=== PATIENT | female | born 1960 | race Caucasian/White ===

== ENCOUNTER → 2016-10-08 | Outpatient (CLI) | payer OTHER ==
--- NOTE | 2016-10-08 22:01 | WWHP ---
DATE OF DICTATION: 10/08/2016 CHIEF COMPLAINT: The patient is here for her routine gynecologic exam and mammogram. HISTORY OF PRESENT ILLNESS: This is a 56-year-old G3, P2-0-1-2 with an LMP of 2006. She is status post endometrial ablation in approximately 2006, and she has been amenorrheic since then. She developed hot flashes about 4 years ago and these have improved, but she still has some hot flashes. She has a genital wart that she has had for several years. She believes she got this from her ex-. She had genital warts removed by Dr. Bradford about 5 years ago, but they have recurred. She is otherwise without gynecologic complaints and denies any postmenopausal bleeding. PAST MEDICAL HISTORY: 1. Diabetes requiring insulin; this has been since age 25. 2. Chronic leg and back problems. 3. Depression. 4. Anxiety. MEDICATIONS: 1. Chantix 1 b.i.d., which she has used since approximately 08/25. 2. NovoLog insulin 20 units in the morning and 20 units in the evening. 3. Xanax 0.5 mg 1 daily p.r.n. 4. Lyrica 1 t.i.d. 5. Naproxen 500 mg b.i.d. p.r.n. 6. Zoloft 100 mg 1 daily. ALLERGIES: NO KNOWN DRUG ALLERGIES. PAST SURGICAL HISTORY: 1. Endometrial ablation in 2006. 2. Laparoscopic tubal ligation. 3. Cholecystectomy. 4. Abdominal wall hernia in the past. 5. She had a colonoscopy in approximately 2013. PAST OB HISTORY: Two vaginal deliveries. The second one was complicated with gestational diabetes. Also one spontaneous . PAST [employer] HISTORY: She has had problems with genital warts since approximately 2011. She has no other history of STDs. SOCIAL HISTORY: She smokes about 2 cigarettes per day and is trying to quit. She denies alcohol use. She does occasionally use marijuana and denies any other drug use. She is and is not seeing anybody at this time. For several years after the divorce she was intermittently seeing her ex-, but she stopped seeing him after she believes he gave her genital warts. She does not work outside the home but does care for her mother, who has dementia. She lives with her parents. FAMILY HISTORY: Father and sisters have diabetes. Father also had coronary artery disease. Mother has dementia. Sister has breast cancer and a cousin had breast cancer. REVIEW OF SYSTEMS: She believes she has gained about 14 pounds over the last year. She denies respiratory, cardiac or GI problems. PHYSICAL EXAM: Blood pressure 129/77. Height 5 feet 4 inches. Weight 174 pounds. Temperature 96.3, pulse 72. This is a well-developed, well-nourished white female who is alert and oriented x3, in no acute distress. HEENT is within normal limits. NECK: Supple without mass or thyromegaly. CHEST AND LUNGS: Clear to auscultation. HEART: Regular rate and rhythm. Breasts are without mass or discharge. Axillary exam is negative for adenopathy. BACK: Negative for CVA tenderness. ABDOMEN: Soft, nontender, without palpable masses. PELVIC EXAM: External genitalia reveal some genital condylomata in the area bordering the perineum and left labia majora. The area of condylomata measures approximately 1.5 x 0.8 cm. This appears benign and has the typical appearance of condyloma. These are raised and seem to be located in the same area. No other condyloma is noted. The rest of the external genitalia is unremarkable but does reveal mild atrophy. Cervix and vagina reveal mild atrophy without lesions. There is no evidence of prolapse. The uterus is midposition, nongravid size and nontender. There are no palpable adnexal masses or tenderness. Rectovaginal exam is negative for mass or tenderness and is negative for occult blood. EXTREMITIES: Nontender. IMPRESSION: A 56-year-old menopausal female who is status post tubal ligation with condylomata isolated to the area between the left labia majora and perineum, and otherwise unremarkable gynecologic exam. PLAN: 1. Pap smear was performed. 2. Self breast examination was discussed. 3. Mammogram will be done today. 4. I have recommend that she quit smoking, and she is in the process of doing this. 5. We discussed options for the condylomata, including Aldara, ( ) treatment and possible excision. She is interested in having the condylomata excised. This was previously done about 5 years ago. She understands that these were probably passed sexually, and STD prevention was discussed. 6. The patient will be referred for possible excision of her condylomata. 7. She will return in one year.
--- NOTE | 2016-10-09 13:46 | MM ---
Reason for exam: screening (asymptomatic). Last mammogram was performed 2 years and 7 months ago. History: Patient is postmenopausal and history of other cancer. Family history of premenopausal breast cancer in grandmother at age 30 and premenopausal breast cancer in sister at age 40. Cancelled Right Mammotome of the right breast, August 22, 2005. Physical Findings: A clinical breast exam by your physician is recommended on an annual basis and results should be correlated with mammographic findings. MG Screening Mammo w CAD Bilateral CC and MLO view(s) were taken. Prior study comparison: March 23, 2014, bilateral MG screening mammo w CAD. July 11, 2013, left diagnostic mammogram w/CAD. December 28, 2012, bilateral digital screening mammo w/CAD. The breast tissue is heterogeneously dense. This may lower the sensitivity of mammography. Focal asymmetry outer left CC view is stable No significant changes when compared with prior studies. ASSESSMENT: Benign, BI-RAD 2 RECOMMENDATION: Routine screening mammogram of both breasts in 1 year.
== END | disposition home or self-care (01) ==
LOC: WWCWWP 10:40
PROVIDERS: ATTEND Obstetrics & Gynecology
DX: Z12.31 Encounter for screening mammogram for malignant neoplasm of breast (principal)

== ENCOUNTER → 2019-02-02 | Outpatient (CLI) | payer OTHER ==
--- NOTE | 2019-02-02 12:09 | XR ---
EXAMINATION TYPE: XR chest 2V DATE OF EXAM: 02/02/2019 COMPARISON: NONE HISTORY: COPD with current tobacco use. TECHNIQUE: Frontal and lateral views of the chest are obtained. FINDINGS: There is chronic parenchymal changes without suspicious focal air space opacity, pleural e ffusion, or pneumothorax seen. The cardiac silhouette size is within normal limits. The osseous st ructures are intact. Cholecystectomy clips are noted. IMPRESSION: Chronic parenchymal changes without acute pulmonary process. Patient may be candidate fo r low dose lung screening CT. Correlate clinically.
== END | disposition home or self-care (01) ==
LOC: RADXRMAIN 11:46
PROVIDERS: ATTEND Family Medicine
DX: J44.9 Chronic obstructive pulmonary disease, unspecified (principal); F17.200 Nicotine dependence, unspecified, uncomplicated
CPT/HCPCS: 71046

== ENCOUNTER 2019-03-06 01:59 | Inpatient (IN) | payer OTHER ==
[2019-03-06] MEDS ORDERED: HEPARIN SODIUM,PORCINE 5,000 UNIT/ML 1 ML VIAL IV ONE (04:26)
[2019-03-06] MEDS ORDERED: HEPARIN SODIUM,PORCINE 5,000 UNIT/ML 1 ML VIAL IV PRN (04:26)
[2019-03-06] MEDS ORDERED: IPRATROPIUM-ALBUTEROL 3 ML NEB INHALATION PRN (04:38)
[2019-03-06] MEDS ORDERED: Potassium Replacement Protocol 1 EACH MISC MISCELLANE PRN (04:38)
[2019-03-06] MEDS: HEPARIN SOD,PORK IN 0.45% NACL 25,000 UNIT in 0.45% NACL 1 250ML.BAG IV SCH (05:15)
[2019-03-06 06:01] LABS: INR 0.9 (<1.2); Partial Thromboplastin Time 30.7 sec (22.0-30.0); Prothrombin Time 9.6 sec (9.0-12.0)
[2019-03-06 06:14] LABS: Anisocytosis Slight; Basophils # (A) 0.1 k/uL (0-0.2); Basophils % (A) 1 %; Eosinophils # (A) 0.3 k/uL (0-0.7); Eosinophils % (A) 4 %; HCT 36.4 % (34.0-46.0); HGB 11.5 gm/dL (11.4-16.0); Hypochromasia Moderate; Lymphocytes # (A) 1.8 k/uL (1.0-4.8); Lymphocytes % (A) 20 %; MCH 27.3 pg (25.0-35.0); MCHC 31.7 g/dL (31.0-37.0); Mean Platelet Volume 6.1; Monocytes # (A) 0.5 k/uL (0-1.0); Monocytes % (A) 5 %; Neutrophils # (A) 6.1 k/uL (1.3-7.7); Neutrophils % (A) 69 %; Platelet Count 322 k/uL (150-450); RBC 4.23 m/uL (3.80-5.40); RDW 17.2 % (11.5-15.5); WBC 8.8 k/uL (3.8-10.6)
[2019-03-06 06:33] LABS: African American GFR (CKD) >90 (>60 ml/min/1.73 sqM); Anion Gap 5 mmol/L; Blood Urea Nitrogen 17 mg/dL (7-17); Calcium 8.8 mg/dL (8.4-10.2); Carbon Dioxide 30 mmol/L (22-30); Chloride 107 mmol/L (98-107); Glucose 169 mg/dL (74-99); Potassium 4.1 mmol/L (3.5-5.1); Sodium 142 mmol/L (137-145)
[2019-03-06] MEDS: PANTOPRAZOLE 40 MG TABLET PO SCH (06:48)
[2019-03-06] MEDS ORDERED: VERAPAMIL 2.5 MG/ML 2 ML AMP ONE (07:25)
[2019-03-06] MEDS ORDERED: LIDOCAINE 1% INJ 10MG/ML (20 ML MDV) ONE (07:25)
[2019-03-06] MEDS ORDERED: fentaNYL (PF) 50 MCG/ML 2 ML AMP ONE (07:39)
[2019-03-06] MEDS ORDERED: MIDAZOLAM 2 MG/2 ML VIAL IVP ONE (07:42)
[2019-03-06] MEDS ORDERED: SODIUM CHLORIDE 0.9% 1,000 ML IV ONE (07:42)
[2019-03-06] MEDS ORDERED: fentaNYL (PF) 50 MCG/ML 2 ML AMP IV ONE (07:42)
[2019-03-06] MEDS: LIDOCAINE 1% INJ 10MG/ML (20 ML MDV) SQ ONE ×2 (07:48→07:59)
[2019-03-06] MEDS ORDERED: HEPARIN SODIUM 1,000 UN/ML (10ML VL) ONE (07:51)
[2019-03-06] MEDS ORDERED: BIVALIRUDIN BOLUS 250 MG/50 ML IV ONE (08:13)
[2019-03-06] MEDS ORDERED: BIVALIRUDIN 250 MG in SODIUM CHLORIDE 0.9% 50 ML IV ONE (08:13)
[2019-03-06] MEDS ORDERED: CLOPIDOGREL 75 MG TAB ONE (08:14)
[2019-03-06] MEDS ORDERED: CLOPIDOGREL 75 MG TAB PO ONE (08:15)
[2019-03-06] MEDS: NITROGLYCERIN 1000MCG/10ML SYRINGE INTRACORON ONE ×2 (08:18→08:23)
--- NOTE | 2019-03-06 08:21 | P.CRDCN ---
History of Present Illness Consult date: 03/06/19 History of present illness: This is a 58-year-old female with history of previous smoking and also diabetes who presented to [facility] with chest pain and shortness of breath, yesterday evening. Her EKGs did not reveal any acute changes. Her symptoms are controlled with medical therapy. However her troponin values went up suggestive of non-Q RI. Patient was transferred to [facility] for further evaluation. Patient is advised to have a cardiac catheterization for definitive diagnosis. Patient was explained the risks and benefits of the p rocedure Review of Systems REVIEW OF SYSTEMS: CONSTITUTIONAL:. Patient is doing well. No complaints of fever or chills EYES: Denies diplopia, blurring of vision EARS, NOSE, MOUTH, THROAT: Denies headaches, denies sore throat. CARDIOVASCULAR: As per HPI RESPIRATORY: As per HPI GASTROINTESTINAL: Denies change in appetite, denies abdominal pain, denies diarrhea GENITOURINARY: Denies hematuria, denies infections. MUSKULOSKELETAL: Denies pain, denies swelling. Denies any cramps or claudication INTEGUMENTARY: Denies rash, denies eczema. NEUROLOGICAL: Denies focal weakness, or visual disturbance. Denies any dizziness or syncope PSYCHIATRIC: Denies anxiety, denies depression. HEMATOLOGIC/LYMPHATIC: Denies any bleeding, denies enlarged lymph nodes. Past Medical History Past Medical History: Diabetes Mellitus History of Any Multi-Drug Resistant Organisms: None Reported Past Surgical History: Cholecystectomy, Tubal Ligation Past Anesthesia/Blood Transfusion Reactions: No Reported Reaction Past Psychological History: Anxiety, Depression Smoking Status: Former smoker Past Alcohol Use History: None Reported Past Drug Use History: Marijuana Additional Drug Use History / Comment(s): pt reports daily marijuana use. - Past Family History Mother Family Medical History: Cancer, Hypertension Additional Family Medical History / Comment(s): ovarian cancer Father Family Medical History: Coronary Artery Disease (CAD), Diabetes Mellitus, Hypertension Medications and Allergies Home Medications Medication Instructions Recorded Confirmed Type ALPRAZolam [Xanax] 0.5 tab PO DAILY 03/06/19 03/06/19 History Insuln Asp Prt/Insulin Aspart 25 units SQ BID 03/06/19 03/06/19 History [NovoLOG MIX 70-30 VIAL] Naproxen 500 mg PO BID PRN 03/06/19 03/06/19 History Omeprazole 20 mg PO DAILY 03/06/19 03/06/19 History Pregabalin 75 mg PO TID 03/06/19 03/06/19 History Sertraline [Zoloft] 100 mg PO DAILY 03/06/19 03/06/19 History Allergies Allergy/AdvReac Type Severity Reaction Status Date / Time No Known Allergies Allergy Verified 03/06/19 04:12 Physical Exam Vitals: Vital Signs Temp Pulse Resp BP Pulse Ox 03/06/19 04:00 97.9 F 61 18 133/71 95 Intake and Output 03/05/19 03/06/19 03/06/19 22:59 06:59 14:59 Output Total 400 Balance -400 Output: Urine 400 Other: Voiding Method Toilet # Voids 2 Weight 77 kg GENERAL EXAM: Patient is alert and oriented and doesn't appear to be in any acute distress HEENT: Normocephalic. Normal reaction of pupils, equal size, normal range of extraocular motion. No erythema or exudates in the throat. NECK: No masses, no nuchal rigidity. CHEST: No chest wall deformity. LUNGS: Equal air entry with no crackles or wheeze. HEART: S1 and S2 normal with no audible mumurs or gallops. Regular rhythm, femorals equal on both sides.. ABDOMEN: No hepatosplenomegaly, normal bowel sounds, no guarding or rigidity. SKIN: No rashes CENTRAL NERVOUS SYSTEM: No focal deficits. EXTREMITIES: No cyanosis, clubbing or edema. Results 03/06/19 05:13 03/06/19 05:13 Coagulation 03/06/19 Range/Units 05:13 PT 9.6 (9.0-12.0) sec APTT 30.7 H (22.0-30.0) sec CBC 03/06/19 Range/Units 05:13 WBC 8.8 (3.8-10.6) k/uL RBC 4.23 (3.80-5.40) m/uL Hgb 11.5 (11.4-16.0) gm/dL Hct 36.4 (34.0-46.0) % Plt Count 322 (150-450) k/uL Comprehensive Metabolic Panel 03/06/19 Range/Units 05:13 Sodium 142 (137-145) mmol/L Potassium 4.1 (3.5-5.1) mmol/L Chloride 107 (98-107) mmol/L Carbon Dioxide 30 (22-30) mmol/L BUN 17 (7-17) mg/dL Creatinine 0.63 (0.52-1.04) mg/dL Glucose 169 H (74-99) mg/dL Calcium 8.8 (8.4-10.2) mg/dL Current Medications Generic Name Dose Route Start Last Admin Trade Name Freq PRN Reason Stop Dose Admin Albuterol/Ipratropium 3 ml 03/06/19 04:38 Duoneb 0.5 Mg-3 Mg/3 Ml Soln INHALATION RT-Q4H PRN Shortness Of Breath Alprazolam 0.5 mg 03/06/19 09:00 Xanax PO DAILY SEEMA Heparin Sodium (Porcine) 0 unit 03/06/19 04:26 Heparin IV PER PROTOCOL PRN Low PTT Protocol Heparin Sodium/Sodium Chloride 250 mls @ 9.24 mls/hr 03/06/19 04:30 03/06/19 05:15 25,000 unit/ Sodium Chloride IV 12 units/kg/hr .Q24H SEEMA 9.24 mls/hr Administration Protocol 12 UNITS/KG/HR Ceftriaxone Sodium 1 gm/ 50 mls @ 100 mls/hr 03/06/19 09:00 Sodium Chloride IVPB Q24HR [facility] Insulin Aspart 25 unit 03/06/19 07:30 Novolog Mix 70-30 Vial SQ AC-BID SEEMA Miscellaneous Information 1 each 03/06/19 04:38 Potassium Per Protocol MISCELLANE DAILY PRN Per Protocol Protocol Naproxen 500 mg 03/06/19 09:00 Naprosyn PO BID PRN Pain Pantoprazole Sodium 40 mg 03/06/19 07:30 03/06/19 06:48 Protonix PO 40 mg AC-BRKFST SEEMA Administration Pregabalin 75 mg 03/06/19 09:00 Lyrica PO TID SEEMA Sertraline HCl 100 mg 03/06/19 09:00 Zoloft PO DAILY SEEMA Intake and Output 03/05/19 03/06/19 03/06/19 22:59 06:59 14:59 Output Total 400 Balance -400 Output: Urine 400 Other: Voiding Method Toilet # Voids 2 Weight 77 kg 03/06/19 05:13 03/06/19 05:13 EKG Interpretations (text) Sinus rhythm without any acute ST-T changes Assessment and Plan (1) Non-ST elevation RI (NSTEMI) Current Visit: Yes Status: Acute Code(s): I21.4 - NON-ST ELEVATION (NSTEMI) MYOCARDIAL INFARCTION SNOMED Code(s): 62079079 (2) Diabetes mellitus Current Visit: Yes Status: Acute Code(s): E11.9 - TYPE 2 DIABETES MELLITUS WITHOUT COMPLICATIONS SNOMED Code(s): 84534357 (3) History of smoking Current Visit: Yes Status: Acute Code(s): Z87.891 - PERSONAL HISTORY OF NICOTINE DEPENDENCE SNOMED Code(s): 476635630 (4) History of marijuana use Current Visit: Yes Status: Acute Code(s): Z87.898 - PERSONAL HISTORY OF OTHER SPECIFIED CONDITIONS SNOMED Code(s): 977149752 Plan: We will proceed with cardiac catheterization for definitive diagnosis. We'll also get an echocardiogram. We'll treat her with beta blockers. Nitrates lipid-lowering agents and aspirin.
[2019-03-06] MEDS ORDERED: IOPAMIDOL-370 125ML BTL INJ ONE (08:27)
--- NOTE | 2019-03-06 08:27 | P.CARDCATH ---
Date of Procedure: 03/06/19 Preoperative Diagnosis: Non-STEMI Postoperative Diagnosis: Critical lesion involving the mid circumflex Procedure(s) Performed: Left heart catheterization without left ventriculography Description of Procedure: HISTORY: [] CONSENT:I have discussed the risks, benefits and alternative therapies for the above-mentioned procedure and for both sedation/analgesia as well as necessary blood product administration, if indicated, as they pertain to this patient. The patient has indicated understanding and acceptance of the risks and procedures discussed. PROCEDURE: Patient was brought to the lab in a fasting state. Patient was given some IV sedation. At times were made to enter the right radial artery after infiltrating the right testicle lidocaine. The floor was obtained while could not be advanced. The procedure was subsequently done from the right groin approach. The right groin is infiltrated with lidocaine and right femoral artery was entered using Seldinger technique. A 6-Ivorian catheter was left in place and selective coronary arteriography was performed. Patient tolerated the procedure well. No immediate complications were noted . Patient went on to have stent placement of circumflex by Dr. Marshall Conscious Sedation: Versed 1mg Fentanyl 25 g Duration 26minutes HEMODYNAMICS: Aortic pressure is 148/81. Left ventricle end-diastolic pressure is about 20. There was no gradient across the aortic valve SELECTIVE CORONARY ARTERIOGRAPHY: LEFT MAIN: Normal length and patent THE LEFT ANTERIOR DESCENDING CORONARY ARTERY:. This is a good caliber vessel which becomes small in caliber in the distal distribution. It was sized to good-sized diagonal branch. The LAD and branches are free of any significant focal lesions. THE LEFT CIRCUMFLEX AND IS CORONARY ARTERY: This is a moderate caliber vessel giving rise to good-sized OM branch and distal PLV branch. There is about 9 the 5-90% stenosis involving the circumflex prior to the origin of the OM branch THE RIGHT CORONARY ARTERY:. This is a moderate caliber vessel and dominant in distribution. There is diffuse disease involving the proximal and mid RCA with areas of about 40-50% stenosis LEFT VENTRICULOGRAPHY: Not performed FINAL IMPRESSION:. Critical lesion involving the circumflex. Mild to moderate diffuse disease involving the RCA. The LAD is free of any Sigmund focal lesions PLAN: Stent placement of the RCA being done by Dr. Marshall PROGNOSIS: Fair
[2019-03-06] MEDS ORDERED: RX INFO: IV CONTRAST WAS GIVEN 1 EACH MISC MISCELLANE PRN (08:48)
[2019-03-06] MEDS ORDERED: NITROGLYCERIN SL TABS 0.4 MG TAB SUBLINGUAL PRN (08:48)
[2019-03-06] MEDS ORDERED: ATROPINE SULFATE 0.1 MG/ML 10ML SYRINGE IV PRN (08:48)
[2019-03-06] MEDS ORDERED: ZOLPIDEM 5 MG TAB PO PRN (08:48)
[2019-03-06] MEDS ORDERED: MAG HYDROX/AL HYDROX/SIMETH 30 ML CUP PO PRN (08:48)
--- NOTE | 2019-03-06 08:56 | P.PCN ---
Date of Procedure: 03/06/19 Operative Findings: Percutaneous coronary intervention Performing physician: Jair Garcia M.D. Procedure performed: Successful stenting of the proximal left circumflex coronary artery using 3.0 x 12 mm Xience SANGEETHA which was post dilated using 3.25 mm noncompliant balloon with an excellent angiographic results and reduction of stenosis from 99% to 0%. Indication: This is a pleasant 58-year-old female patient with a past medical history significant for diabetes as well as history of smoking marijuana who presented initially to [facility] with chest discomfort and ruled in for acute non-ST deviation myocardial infarction. The patient was seen by Dr. Youssef who recommended proceeding with a heart catheterization which revealed critical disease involving the proximal left circumflex. Balloon angioplasty and stenting was advised. Approach: Right common femoral artery. Complication: None Level of sedation: Moderate with a sedation length of 23 minutes Procedure description: Please refer to diagnosed 6 heart catheterization was performed by Dr. Youssef earlier today. Anticoagulation was initiated using Angiomax. I did engage the left main using JL 3.5 guide. I wire the left circumflex using a whisper J-wire and the wire was advanced into the first obtuse marginal branch of the left circumflex. After that I did balloon angioplasty of the left circumflex using 2.5 x 12 mm balloon which was inflated under 14 unique for 20 seconds. After that I did advance 3.0 x 15 mm Xience SANGEETHA where the stent was positioned under fluoroscopy guidance and deployed under 18 unique for 20 seconds. I post dilated the stent using 3.25 mm noncompliant balloon which was inflated under 20 unique for 20 seconds. The following angiogram showed an excellent angiographic results with reduction of stenosis from 99% to 0%. The procedure was completed without any complication. Postprocedure management: Dual antiplatelet therapy Risk factors modification Standard groin care Follow-up with the patient
[2019-03-06] MEDS ORDERED: SODIUM CHLORIDE 0.9% 1,000 ML IV SCH (09:00)
[2019-03-06] MEDS ORDERED: NAPROXEN 250 MG TAB PO PRN (09:00)
--- NOTE | 2019-03-06 10:10 | P.HPIM ---
History of Present Illness H&P Date: 03/06/19 Chief Complaint: Chest pain This is a 58-year-old female with the remote history of a small smoking, patient uses medical marijuana, she has significant history of GERD diabetes and major depression she presented in emergency department after shortness of breath and chest tightness thought to be related to different detergent exposure but tightness was consistent without any significant response to breathing treatment she was noted to have some EKG changes ST segment elevation thought to have significant coronary artery disease and unstable angina and transferred to [facility], cardiac cath and angiogram performed a significant lesion in circumflex prior to region of up to his marginal and about 40-50% stenosis of RCA patient underwent stent placement in circumflex tolerated very well evaluated in the living room she is laying flat breathing comfortably denies any chest pain Review of Systems All systems: negative Past Medical History Past Medical History: Diabetes Mellitus History of Any Multi-Drug Resistant Organisms: None Reported Past Surgical History: Cholecystectomy, Tubal Ligation Past Anesthesia/Blood Transfusion Reactions: No Reported Reaction Past Psychological History: Anxiety, Depression Smoking Status: Former smoker Past Alcohol Use History: None Reported Past Drug Use History: Marijuana Additional Drug Use History / Comment(s): pt reports daily marijuana use. - Past Family History Mother Family Medical History: Cancer, Hypertension Additional Family Medical History / Comment(s): ovarian cancer Father Family Medical History: Coronary Artery Disease (CAD), Diabetes Mellitus, Hypertension Medications and Allergies Home Medications Medication Instructions Recorded Confirmed Type ALPRAZolam [Xanax] 0.5 mg PO DAILY 03/06/19 03/06/19 History Dextroamphetamine/Amphetamine 30 mg PO BID 03/06/19 03/06/19 History [Adderall] Hydrochlorothiazide [Hydrodiuril] 25 mg PO DAILY 03/06/19 03/06/19 History Insuln Asp Prt/Insulin Aspart 25 units SQ BID 03/06/19 03/06/19 History [NovoLOG MIX 70-30 VIAL] Naproxen 500 mg PO BID PRN 03/06/19 03/06/19 History Omeprazole 20 mg PO DAILY 03/06/19 03/06/19 History Pregabalin 75 mg PO TID 03/06/19 03/06/19 History Sertraline [Zoloft] 100 mg PO DAILY 03/06/19 03/06/19 History Allergies Allergy/AdvReac Type Severity Reaction Status Date / Time No Known Allergies Allergy Verified 03/06/19 08:58 Physical Exam Vitals: Vital Signs Temp Pulse Resp BP Pulse Ox 03/06/19 09:33 63 18 127/73 94 L 03/06/19 09:18 62 16 131/78 96 03/06/19 09:03 63 18 143/72 95 03/06/19 08:48 98.6 F 14 146/73 95 03/06/19 04:00 97.9 F 61 18 133/71 95 Intake and Output 03/05/19 03/06/19 03/06/19 22:59 06:59 14:59 Intake Total 50 Output Total 400 Balance -400 50 Intake: IV 50 Output: Urine 400 Other: Voiding Method Toilet Bedpan # Voids 2 Weight 77 kg - Constitutional General appearance: average body habitus, cooperative, disheveled, no acute distress - EENT Eyes: EOMI, PERRLA, normal appearance ENT: normal oropharynx Ears: bilateral: normal - Neck Neck: normal ROM Carotids: bilateral: bruit absent Thyroid: bilateral: normal size - Respiratory Respiratory: bilateral: CTA - Cardiovascular Rhythm: regular Heart sounds: normal: S1, S2 - Gastrointestinal General gastrointestinal: normal bowel sounds, soft - Neurologic Neurologic: CNII-XII intact - Musculoskeletal Musculoskeletal: gait normal, generalized weakness, strength equal bilaterally - Psychiatric Psychiatric: A&O x's 3, appropriate affect, intact judgment & insight Results CBC & Chem 7: 03/06/19 05:13 03/06/19 05:13 Labs: Abnormal Lab Results - Last 24 Hours (Table) 03/06/19 03/06/19 03/06/19 Range/Units 05:13 05:13 05:13 RDW 17.2 H (11.5-15.5) % APTT 30.7 H (22.0-30.0) sec Glucose 169 H (74-99) mg/dL Thrombosis Risk Factor Assmnt - Choose All That Apply Any of the Below Risk Factors Present?: Yes Each Factor Represents 1 point: Acute [place], Age 41-60 years Other Risk Factors: No Other congenital or acquired thrombophilia - If yes, enter type in comment: No Thrombosis Risk Factor Assessment Total Risk Factor Score: 2 Thrombosis Risk Factor Assessment Level: Low Risk Assessment and Plan Assessment: Unstable angina with significant disease in circumflex is status post stent placement, moderate disease in RCA Inhalational injury to detergents Tracheobronchitis Insulin-dependent diabetes mellitus type 2 History of smoking and nicotine use Dyslipidemia Major depression Plan: Continue breathing treatment as needed Antibiotics Optimize medical management of angina and coronary artery disease Status post cardiac cath angiogram and stent and circumflex Continue insulin and sliding scale Continue home medications Other recommendations pending plan of care as per clinical response of the patient Time with Patient: Greater than 30
[2019-03-06] MEDS: INSULN ASP PRT/INSULIN ASPART 100 UNIT/ML 10 ML VIAL SQ SCH ×2 (10:32→17:15)
[2019-03-06] MEDS: LISINOPRIL 2.5 MG TAB PO SCH (10:34)
[2019-03-06] MEDS: METOPROLOL TARTRATE 25 MG TAB PO SCH ×2 (10:34→20:31)
[2019-03-06] MEDS: ASPIRIN 325 MG TAB PO SCH (10:34)
[2019-03-06] MEDS: SERTRALINE 100 MG TAB PO SCH (10:34)
[2019-03-06] MEDS: PREGABALIN 75 MG CAP PO SCH ×3 (10:34→20:31)
[2019-03-06] MEDS: ALPRAZolam 0.5 MG TAB PO SCH (10:35)
[2019-03-06 11:18] VITALS: BMI 29.1
[2019-03-06 12:13] LABS: Glucose,Whole Blood 228 mg/dL (75-99)
[2019-03-06 13:35] LABS: Glucose,Whole Blood 247 mg/dL (75-99)
[2019-03-06] MEDS: INSULIN ASPART (NovoLOG) 100 UNIT/ML VIAL SQ SCH ×3 (13:37→20:56)
[2019-03-06 16:47] LABS: Glucose,Whole Blood 135 mg/dL (75-99)
[2019-03-06] MEDS: ATORVASTATIN 80 MG TAB PO SCH (20:31)
[2019-03-06 20:47] LABS: Glucose,Whole Blood 59 mg/dL (75-99)
[2019-03-06 21:13] LABS: Glucose,Whole Blood 64 mg/dL (75-99)
[2019-03-06 21:33] LABS: Glucose,Whole Blood 76 mg/dL (75-99)
[2019-03-07 01:59] LABS: Glucose,Whole Blood 148 mg/dL (75-99)
[2019-03-07] MEDS: HEPARIN SOD,PORK IN 0.45% NACL 25,000 UNIT in 0.45% NACL 1 250ML.BAG IV SCH (03:54)
[2019-03-07] MEDS: PANTOPRAZOLE 40 MG TABLET PO SCH (06:40)
[2019-03-07 06:47] LABS: Anisocytosis Slight; Basophils % (A) 0 %; Eosinophils # (A) 0.4 k/uL (0-0.7); Eosinophils % (A) 5 %; HCT 39.8 % (34.0-46.0); HGB 12.2 gm/dL (11.4-16.0); Hypochromasia Moderate; Lymphocytes % (A) 27 %; MCH 26.4 pg (25.0-35.0); MCHC 30.6 g/dL (31.0-37.0); MCV 86.2 fL (80.0-100.0); Mean Platelet Volume 5.8; Monocytes # (A) 0.4 k/uL (0-1.0); Monocytes % (A) 5 %; Neutrophils # (A) 4.3 k/uL (1.3-7.7); Neutrophils % (A) 59 %; Platelet Count 334 k/uL (150-450); RBC 4.61 m/uL (3.80-5.40); RDW 17.2 % (11.5-15.5); WBC 7.2 k/uL (3.8-10.6)
[2019-03-07 06:54] LABS: African American GFR (CKD) >90 (>60 ml/min/1.73 sqM)
[2019-03-07 07:40] LABS: Glucose,Whole Blood 148 mg/dL (75-99)
[2019-03-07] MEDS: SERTRALINE 100 MG TAB PO SCH (08:27)
[2019-03-07] MEDS: ALPRAZolam 0.5 MG TAB PO SCH ×2 (08:27→17:52)
[2019-03-07] MEDS: METOPROLOL TARTRATE 25 MG TAB PO SCH ×2 (08:27→20:58)
[2019-03-07] MEDS: PREGABALIN 75 MG CAP PO SCH ×3 (08:27→20:58)
[2019-03-07] MEDS: LISINOPRIL 2.5 MG TAB PO SCH (08:28)
[2019-03-07] MEDS: CLOPIDOGREL 75 MG TAB PO SCH ×2 (08:29→09:35)
[2019-03-07] MEDS: ASPIRIN 325 MG TAB PO SCH (08:29)
[2019-03-07] MEDS: INSULN ASP PRT/INSULIN ASPART 100 UNIT/ML 10 ML VIAL SQ SCH ×2 (08:31→17:52)
[2019-03-07] MEDS: INSULIN ASPART (NovoLOG) 100 UNIT/ML VIAL SQ SCH ×4 (09:35→20:58)
--- NOTE | 2019-03-07 11:51 | P.PN ---
Subjective Progress Note Date: 03/07/19 This is a 58-year-old female with history of nicotine dependence, diabetes, hyperlipidemia, who presented to [facility] with a non- ST elevation myocardial infarction. She was transferred here to [facility] where the patient underwent angioplasty and stenting of the circumflex artery. She was seen and examined this morning, denied any chest pain or difficulty in breathing. Blood pressure 128/60 with a heart rate in the 60s, 94% on room air. White Blood cell count 7.2, hemoglobin 12.2, platelet count 334. An echocardiogram with Doppler study has been performed, results are yet pending. Patient is currently on an aspirin daily along with Lipitor 80 mg daily, Plavix 75 mg daily, lisinopril 2-1/2 mg daily, metoprolol 25 mg one tablet by mouth twice a day. Objective - Vital Signs Vital signs: Vital Signs Temp 98.1 F 03/07/19 08:00 Pulse 61 03/07/19 08:00 Resp 18 03/07/19 08:00 BP 127/64 03/07/19 08:00 Pulse Ox 94 L 03/07/19 08:00 Intake & Output 03/06/19 03/07/19 03/07/19 18:59 06:59 18:59 Intake Total 526 240 Balance 526 240 Weight 77 kg 72.6 kg Intake: IV 50 Oral 476 240 Other: Voiding Method Bedpan Toilet # Voids 3 1 - Exam PHYSICAL EXAMINATION: GENERAL: 58-year-old female in no acute distress at the time of my examination HEENT: Head is atraumatic, normocephalic. Pupils equal, round. Sclera anicteric. Conjunctiva are clear. Mucous membranes of the mouth are moist. Neck is supple. There is no elevated jugular venous pressure. No carotid bruit is heard. HEART EXAMINATION: Heart S1, S2 normal. No murmur or gallop heard. CHEST EXAMINATION: Lungs are clear to auscultation and precussion. No chest wall tenderness is noted on palpation or with deep breathing. ABDOMEN: Soft, nontender. Bowel sounds are heard. No organomegaly noted. EXTREMITIES: 2+ peripheral pulses with no evidence of peripheral edema and no calf tenderness noted. Right radial site and right groin are soft, no evidence of any hematoma. NEUROLOGIC patient is awake, alert and oriented X3. . - Labs CBC & Chem 7: 03/07/19 06:16 03/07/19 06:16 Labs: Abnormal Lab Results - Last 24 Hours (Table) 03/06/19 03/06/19 03/06/19 Range/Units 12:12 13:33 16:35 MCHC (31.0-37.0) g/dL RDW (11.5-15.5) % POC Glucose (mg/dL) 228 H 247 H 135 H (75-99) mg/dL 03/06/19 03/06/19 03/07/19 Range/Units 20:45 21:11 01:57 MCHC (31.0-37.0) g/dL RDW (11.5-15.5) % POC Glucose (mg/dL) 59 L 64 L 148 H (75-99) mg/dL 03/07/19 03/07/19 Range/Units 06:16 07:36 MCHC 30.6 L (31.0-37.0) g/dL RDW 17.2 H (11.5-15.5) % POC Glucose (mg/dL) 148 H (75-99) mg/dL Assessment and Plan Plan: Assessment and plan #1 non-ST elevation myocardial infarction, status post angioplasty and stenting of the circumflex artery. #2 diabetes #3 hyperlipidemia #4 nicotine dependence #5 marijuana use Plan We will review the patient's echocardiogram with Doppler study, continue with current medications. Plan for possible discharge home in 24 hours if stable. DNP note has been reviewed, I agree with a documented findings and plan of care. Patient was seen and examined.
--- NOTE | 2019-03-07 12:01 | ECHOF ---
Referral Reason:positive troponins MEASUREMENTS -------- HEIGHT: 162.6 cm WEIGHT: 76.7 kg BP: RVIDd: 3.5 cm (< 3.3) IVSd: 1.2 cm (0.6 - 1.1) LVIDd: 4.0 cm (3.9 - 5.3) LVPWd: 1.1 cm (0.6 - 1.1) IVSs: 1.5 cm LVIDs: 3.1 cm LVPWs: 1.5 cm LA Diam: 3.7 cm (2.7 - 3.8) LAESV Index (A-L): 24.73 ml/m Ao Diam: 2.7 cm (2.0 - 3.7) AV Cusp: 1.6 cm (1.5 - 2.6) LA Diam: 4.0 cm (2.7 - 3.8) MV EXCURSION: 17.007 mm (> 18.000) MV EF SLOPE: 65 mm/s (70 - 150) EPSS: 0.2 cm MV E Brayden: 0.87 m/s MV DecT: 279 ms MV A Brayden: 1.00 m/s MV E/A Ratio: 0.88 RAP: 5.00 mmHg RVSP: 28.43 mmHg FINDINGS -------- Sinus rhythm. This was a technically adequate study. The left ventricular size is normal. There is mild concentric left ventricular hypertrophy. Overa ll left ventricular systolic function is low-normal with, an EF between 50 - 55 %. The right ventricle is normal in size. The left atrial size is normal. Normal LA size by volume 22+/-6 ml/m2. The right atrial size is normal. There is mild aortic valve sclerosis. There is no evidence of aortic regurgitation. Mild mitral annular calcification present. Nqirjluo-[id number] mitral regurgitation is present. Mild tricuspid regurgitation present. Right ventricular systolic pressure is normal at < 35 mmHg. There is no evidence of pulmonary hypertension. There is no pulmonic regurgitation present. The aortic root size is normal. There is no pericardial effusion. CONCLUSIONS -------- 1. Sinus rhythm. 2. This was a technically adequate study. 3. The left ventricular size is normal. 4. There is mild concentric left ventricular hypertrophy. 5. Overall left ventricular systolic function is low-normal with, an EF between 50 - 55 %. 6. The right ventricle is normal in size. 7. The left atrial size is normal. 8. Normal LA size by volume 22+/-6 ml/m2. 9. The right atrial size is normal. 10. There is mild aortic valve sclerosis. 11. Mild mitral annular calcification present. 12. Kbrbvdel-aw-pssqmz mitral regurgitation is present. 13. Mild tricuspid regurgitation present. 14. Right ventricular systolic pressure is normal at < 35 mmHg. 15. There is no evidence of pulmonary hypertension. 16. There is no pulmonic regurgitation present. 17. The aortic root size is normal. 18. There is no pericardial effusion. AWS DEVELOPER: Beulah Jimenez RDCS
[2019-03-07 12:14] LABS: Glucose,Whole Blood 73 mg/dL (75-99)
[2019-03-07 13:10] LABS: Hemoglobin A1C 6.9 % (4.0-6.0)
--- NOTE | 2019-03-07 15:41 | P.PN ---
Subjective Progress Note Date: 03/07/19 Principal diagnosis: Unstable angina with significant disease in circumflex is status post stent placement, moderate disease in RCA Inhalational injury to detergents Tracheobronchitis Insulin-dependent diabetes mellitus type 2 History of smoking and nicotine use Dyslipidemia Major depression 03/07/2019, patient seen eval examined in the Rounds labs reviewed medications r eviewed care plan discussed with the patient is pain-free at this point of time ambulating discussed with cardiology plan is for possible discharge tomorrow, This is a 58-year-old female with the remote history of a small smoking, patient uses medical marijuana, she has significant history of GERD diabetes and major depression she presented in emergency department after shortness of breath and chest tightness thought to be related to different detergent exposure but tightness was consistent without any significant response to breathing treatment she was noted to have some EKG changes ST segment elevation thought to have significant coronary artery disease and unstable angina and transferred to [facility], cardiac cath and angiogram performed a significant lesion in circumflex prior to region of up to his marginal and about 40-50% stenosis of RCA patient underwent stent placement in circumflex tolerated very well evaluated in the living room she is laying flat breathing comfortably denies any chest pain Objective - Vital Signs Vital signs: Vital Signs Temp 98.1 F 03/07/19 08:00 Pulse 55 L 03/07/19 12:00 Resp 16 03/07/19 12:00 BP 126/69 03/07/19 12:00 Pulse Ox 98 03/07/19 12:00 Intake & Output 03/06/19 03/07/19 03/07/19 18:59 06:59 18:59 Intake Total 526 462 Balance 526 462 Weight 77 kg 72.6 kg Intake: IV 50 Oral 476 462 Other: Voiding Method Bedpan Toilet # Voids 3 1 - Exam - Constitutional General appearance: average body habitus, cooperative, disheveled, no acute distress - EENT Eyes: EOMI, PERRLA, normal appearance ENT: normal oropharynx Ears: bilateral: normal - Neck Neck: normal ROM Carotids: bilateral: bruit absent Thyroid: bilateral: normal size - Respiratory Respiratory: bilateral: CTA - Cardiovascular Rhythm: regular Heart sounds: normal: S1, S2 - Gastrointestinal General gastrointestinal: normal bowel sounds, soft - Neurologic Neurologic: CNII-XII intact - Musculoskeletal Musculoskeletal: gait normal, generalized weakness, strength equal bilaterally - Psychiatric Psychiatric: A&O x's 3, appropriate affect, intact judgment & insight - Labs CBC & Chem 7: 03/07/19 06:16 03/07/19 06:16 Labs: Abnormal Lab Results - Last 24 Hours (Table) 03/06/19 03/06/19 03/06/19 Range/Units 16:35 20:45 21:11 MCHC (31.0-37.0) g/dL RDW (11.5-15.5) % POC Glucose (mg/dL) 135 H 59 L 64 L (75-99) mg/dL Hemoglobin A1c (4.0-6.0) % 03/07/19 03/07/19 03/07/19 Range/Units 01:57 06:16 06:16 MCHC 30.6 L (31.0-37.0) g/dL RDW 17.2 H (11.5-15.5) % POC Glucose (mg/dL) 148 H (75-99) mg/dL Hemoglobin A1c 6.9 H (4.0-6.0) % 03/07/19 03/07/19 Range/Units 07:36 12:13 MCHC (31.0-37.0) g/dL RDW (11.5-15.5) % POC Glucose (mg/dL) 148 H 73 L (75-99) mg/dL Hemoglobin A1c (4.0-6.0) % Assessment and Plan Assessment: Unstable angina with significant disease in circumflex is status post stent placement, moderate disease in RCA Inhalational injury to detergents Tracheobronchitis Insulin-dependent diabetes mellitus type 2 History of smoking and nicotine use Dyslipidemia Major depression Plan: Continue breathing treatment as needed Antibiotics Optimize medical management of angina and coronary artery disease Status post cardiac cath angiogram and stent and circumflex Continue insulin and sliding scale Continue home medications Other recommendations pending plan of care as per clinical response of the patient Time with Patient: Greater than 30
[2019-03-07 17:47] LABS: Glucose,Whole Blood 152 mg/dL (75-99)
[2019-03-07 20:26] VITALS: RESP 18
[2019-03-07 20:36] LABS: Glucose,Whole Blood 70 mg/dL (75-99)
[2019-03-07] MEDS: ATORVASTATIN 80 MG TAB PO SCH (20:58)
[2019-03-08] MEDS: PANTOPRAZOLE 40 MG TABLET PO SCH (06:13)
[2019-03-08 06:23] LABS: Anisocytosis Slight; Basophils # (A) 0.1 k/uL (0-0.2); Basophils % (A) 1 %; Eosinophils # (A) 0.4 k/uL (0-0.7); Eosinophils % (A) 5 %; HCT 38.7 % (34.0-46.0); HGB 12.1 gm/dL (11.4-16.0); Hypochromasia Slight; Lymphocytes # (A) 2.4 k/uL (1.0-4.8); Lymphocytes % (A) 30 %; MCH 26.9 pg (25.0-35.0); MCHC 31.3 g/dL (31.0-37.0); MCV 85.9 fL (80.0-100.0); Mean Platelet Volume 5.8; Monocytes # (A) 0.5 k/uL (0-1.0); Monocytes % (A) 6 %; Neutrophils # (A) 4.4 k/uL (1.3-7.7); Neutrophils % (A) 55 %; Platelet Count 319 k/uL (150-450); RDW 17.1 % (11.5-15.5)
[2019-03-08 06:39] LABS: Glucose,Whole Blood 154 mg/dL (75-99)
[2019-03-08] MEDS: INSULIN ASPART (NovoLOG) 100 UNIT/ML VIAL SQ SCH ×2 (06:41→12:57)
[2019-03-08] MEDS: INSULN ASP PRT/INSULIN ASPART 100 UNIT/ML 10 ML VIAL SQ SCH (06:43)
[2019-03-08] MEDS: SERTRALINE 100 MG TAB PO SCH (08:14)
[2019-03-08] MEDS: CLOPIDOGREL 75 MG TAB PO SCH (08:14)
[2019-03-08] MEDS: METOPROLOL TARTRATE 25 MG TAB PO SCH (08:14)
[2019-03-08] MEDS: PREGABALIN 75 MG CAP PO SCH ×2 (08:15→15:52)
[2019-03-08] MEDS: LISINOPRIL 2.5 MG TAB PO SCH (08:15)
[2019-03-08] MEDS ORDERED: ASPIRIN 81 MG PO SCH (09:00)
--- NOTE | 2019-03-08 10:12 | CDI ---
Documentation Clarification Form Date: 03/08/2019 10:04:04 AM From: Zakia AlonsoStroudCAITIE, CCDS Admit Date: 03/06/2019 3:10:00 AM Patient Name: Francy Everett Visit Number: [id number] Discharge Date: ATTENTION: The Clinical Documentation Specialists (CDI) and [facility] Staff appreciate your assistance in clarifying documentation. Please respond to the clarification below the line at the bottom and electronically sign. The CDI & [facility] staff will review the response and follow-up if needed. Please note: Queries are made part of the Legal Health Record. If you have any questions, please contact the author of this message via ITS. Dr. Douglas Sarabia: Per the pulmonary consult & subsequent progress note: "Inhalational injury to detergents." The patient complained of chest tightness thought to be related to different detergent exposure. History/Risk Factors: Former smoker, Marijuana use, GERD, Anxiety & Depression. Clinical Indicators: Presented to [facility] with chest pain & tightness, SOB. Transferred to [facility] for heart cath & intervention. Diagnosed with CAD & tracheobronchitis. EKG: ST segment elevation, CAD & unstable angina. Lab findings: Chloride & CO2 wnl, Glucose 169. Vital Signs: P 61, BP 133/71 Treatment: Left heart catheterization & PTCA with stent to circumflex, Insulin sliding scale. In your professional opinion, can you please clarify if the patient also is being treated for the following: Inhalational injury to detergents ruled in Inhalational injury to detergents ruled out Other, please specify Unable to determine (Last Revision: August 2017) MTDD
[2019-03-08 12:47] LABS: Glucose,Whole Blood 101 mg/dL (75-99)
--- NOTE | 2019-03-08 14:38 | P.PN ---
Subjective Progress Note Date: 03/08/19 This is a 58-year-old female with history of nicotine dependence, diabetes, hyperlipidemia, who presented to [facility] with a non- ST elevation myocardial infarction. She was transferred here to [facility] where the patient underwent angioplasty and stenting of the circumflex artery. She was seen and examined this morning, denied any chest pain or difficulty in breathing. Blood pressure 128/60 with a heart rate in the 60s, 94% on room air. White Blood cell count 7.2, hemoglobin 12.2, platelet count 334. An echocardiogram with Doppler study has been performed, results are yet pending. Patient is currently on an aspirin daily along with Lipitor 80 mg daily, Plavix 75 mg daily, lisinopril 2-1/2 mg daily, metoprolol 25 mg one tablet by mouth twice a day. 03/08/2019 Patient was seen and examined this morning, denied any chest discomfort, breathing is stable. Hemodynamically she stable. Blood pressure 120/70 with a heart rate in the 50s, 96% on room air. Echocardiogram with Doppler study was performed which revealed an ejection fraction of 50-55%, moderate to severe mitral regurgitation. White blood cell count 8.0, hemoglobin 12.1, platelet count 319. Objective - Vital Signs Vital signs: Vital Signs Temp 98.5 F 03/08/19 11:15 Pulse 53 L 03/08/19 11:15 Resp 18 03/08/19 11:15 BP 100/48 03/08/19 11:15 Pulse Ox 95 03/08/19 11:15 Intake & Output 03/07/19 03/08/19 03/08/19 18:59 06:59 18:59 Intake Total 743 135 3235 Balance 770 156 5800 Weight 72.9 kg Intake: Intake, IV Titration 50 Amount cefTRIAXone 1 gm In 50 Sodium Chloride 0.9% 50 ml @ 100 mls/hr IVPB Q24HR [facility] Rx#:[id number] Oral [phone] Other: Voiding Method Toilet Toilet # Voids 1 - Exam PHYSICAL EXAMINATION: GENERAL: 58-year-old female in no acute distress at the time of my examination HEENT: Head is atraumatic, normocephalic. Pupils equal, round. Sclera anicteric. Conjunctiva are clear. Mucous membranes of the mouth are moist. Neck is supple. There is no elevated jugular venous pressure. No carotid bruit is heard. HEART EXAMINATION: Heart S1, S2 normal. No murmur or gallop heard. CHEST EXAMINATION: Lungs are clear to auscultation and precussion. No chest wall tenderness is noted on palpation or with deep breathing. ABDOMEN: Soft, nontender. Bowel sounds are heard. No organomegaly noted. EXTREMITIES: 2+ peripheral pulses with no evidence of peripheral edema and no calf tenderness noted. Right radial site and right groin are soft, no evidence of any hematoma. NEUROLOGIC patient is awake, alert and oriented X3. . - Labs CBC & Chem 7: 03/08/19 06:04 03/07/19 06:16 Labs: Abnormal Lab Results - Last 24 Hours (Table) 03/07/19 03/07/19 03/08/19 Range/Units 17:43 20:35 06:04 RDW 17.1 H (11.5-15.5) % POC Glucose (mg/dL) 152 H 70 L (75-99) mg/dL 03/08/19 03/08/19 Range/Units 06:37 12:43 RDW (11.5-15.5) % POC Glucose (mg/dL) 154 H 101 H (75-99) mg/dL Assessment and Plan Plan: Assessment and plan #1 non-ST elevation myocardial infarction, status post angioplasty and stenting of the circumflex artery. #2 diabetes #3 hyperlipidemia #4 nicotine dependence #5 marijuana use Plan From cardiology's perspective, patient may be able to be discharged home today. We'll make a follow-up appointment for her in the office post discharge. DNP note has been reviewed, I agree with a documented findings and plan of care. Patient was seen and examined.
[2019-03-08 16:08] VITALS: BP 124/61; PULSE 56; TEMP 98.8
--- NOTE | 2019-03-08 17:55 | P.DS ---
Providers Date of admission: 03/06/19 03:10 Expected date of discharge: 03/08/19 Attending physician: Douglas Sarabia Consults: 03/06/19 08:48 Consult Physician Routine Consulting Provider: [facility] Consult Reason/Comments: Post Interventional patient Do you want consulting provider notified?: Already Contacted Primary care physician: Douglas Sarabia [facility] Course: This is a 58-year-old female with the remote history of a small smoking, patient uses medical marijuana, she has significant history of GERD diabetes and major depression she presented in emergency department after shortness of breath and chest tightness thought to be related to different detergent exposure but tightness was consistent without any significant response to breathing treatment she was noted to have some EKG changes ST segment elevation thought to have significant coronary artery disease and unstable angina and transferred to [facility], cardiac cath and angiogram performed a significant lesion in circumflex prior to region of up to his marginal and about 40-50% stenosis of RCA patient underwent stent placement in circumflex tolerated very well evaluated in the living room she is laying flat breathing comfortably denies any chest pain Pertinent Studies: Cardiac cath and angiogram Procedures: Cardiac cath angiogram and stent placement in circumflex Patient Condition at Discharge: Stable Plan - Discharge Summary Discharge Rx Participant: Yes New Discharge Prescriptions: New Atorvastatin [Lipitor] 80 mg PO HS #30 tab Metoprolol Tartrate [Lopressor] 25 mg PO BID #60 tab Nitroglycerin Sl Tabs [Nitrostat] 0.4 mg SUBLINGUAL Q5M PRN #25 tab PRN Reason: Chest Pain Clopidogrel [Plavix] 75 mg PO DAILY #30 tab Lisinopril [Zestril] 2.5 mg PO DAILY #30 tab Aspirin 81 mg PO DAILY #30 chewable Discontinued Naproxen 500 mg PO BID PRN PRN Reason: Pain No Action Pregabalin 75 mg PO TID Omeprazole 20 mg PO DAILY ALPRAZolam [Xanax] 0.5 mg PO DAILY Insuln Asp Prt/Insulin Aspart [NovoLOG MIX 70-30 VIAL] 25 units SQ BID Sertraline [Zoloft] 100 mg PO DAILY Hydrochlorothiazide [Hydrodiuril] 25 mg PO DAILY Dextroamphetamine/Amphetamine [Adderall] 30 mg PO BID Discharge Medication List ALPRAZolam [Xanax] 0.5 mg PO DAILY 03/06/19 [History] Dextroamphetamine/Amphetamine [Adderall] 30 mg PO BID 03/06/19 [History] Hydrochlorothiazide [Hydrodiuril] 25 mg PO DAILY 03/06/19 [History] Insuln Asp Prt/Insulin Aspart [NovoLOG MIX 70-30 VIAL] 25 units SQ BID 03/06/19 [History] Omeprazole 20 mg PO DAILY 03/06/19 [History] Pregabalin 75 mg PO TID 03/06/19 [History] Sertraline [Zoloft] 100 mg PO DAILY 03/06/19 [History] Aspirin 81 mg PO DAILY #30 chewable 03/08/19 [Rx] Atorvastatin [Lipitor] 80 mg PO HS #30 tab 03/08/19 [Rx] Clopidogrel [Plavix] 75 mg PO DAILY #30 tab 03/08/19 [Rx] Lisinopril [Zestril] 2.5 mg PO DAILY #30 tab 03/08/19 [Rx] Metoprolol Tartrate [Lopressor] 25 mg PO BID #60 tab 03/08/19 [Rx] Nitroglycerin Sl Tabs [Nitrostat] 0.4 mg SUBLINGUAL Q5M PRN #25 tab 03/08/19 [Rx] Follow up Appointment(s)/Referral(s): Mesfin Ramirez MD [STAFF PHYSICIAN] - 3 Days (Please call to schedule appointment) Lyndsey Youssef MD [STAFF PHYSICIAN] - 03/14/19 8:45 am (Card Dealer.) Patient Instructions/Handouts: Heart Healthy Diet (DC), Coronary Intravascular Stent Placement (DC) Activity/Diet/Wound Care/Special Instructions: CARDIAC CATH: 1. Support your puncture site by applying firm, steady pressure whenever you cough, laugh, sneeze or bear down to have a bowel movement (2-day restriction). 2. Watch for any excessive bruising, active bleeding, a firm knot forming under your skin, extreme tenderness and signs of infection (redness, swelling, fever). 3. Shower daily, do not soak puncture in a tub bath, jacuzzi, pool, edward etc. for 1 week. This is to prevent risk of infection. 4. Drink plenty of fluids the day of and day after your procedure to flush contrast dye out of your kidneys. 5. Take all medications as directed. Never stop any new medication without your physicians OK. 6. No driving for 2 days after procedure. 7. 10- pound weight lifting restriction for 1 week. 8. Low sodium/low fat diet. 9. Activity limited until follow up appointment with your data center operator. In case of any problems, please call [facility] [place] @ [phone]. Discharge Disposition: HOME SELF-CARE
== END 2019-03-08 16:37 | disposition home or self-care (01) | DRG 247 ==
LOC: 3SCARD 03:10
PROVIDERS: ADMIT Internal Medicine Sleep Medicine; ATTEND Internal Medicine Sleep Medicine
PROC: 027034Z Dilation of Coronary Artery, One Artery with Drug-eluting Intraluminal Device, Percutaneous Approach (ICD-10-PCS; principal; 2019-03-06 07:30)
DX: I21.4 Non-ST elevation (NSTEMI) myocardial infarction (principal); E11.9 Type 2 diabetes mellitus without complications; E78.5 Hyperlipidemia, unspecified; F17.200 Nicotine dependence, unspecified, uncomplicated; F32.9 Major depressive disorder, single episode, unspecified; F41.9 Anxiety disorder, unspecified; I25.110 Atherosclerotic heart disease of native coronary artery with unstable angina pectoris; I34.0 Nonrheumatic mitral (valve) insufficiency; J40 Bronchitis, not specified as acute or chronic; K21.9 Gastro-esophageal reflux disease without esophagitis; Z79.02 Long term (current) use of antithrombotics/antiplatelets; Z79.4 Long term (current) use of insulin; Z79.82 Long term (current) use of aspirin; Z79.899 Other long term (current) drug therapy; Z80.41 Family history of malignant neoplasm of ovary; Z82.49 Family history of ischemic heart disease and other diseases of the circulatory system; Z83.3 Family history of diabetes mellitus
CPT/HCPCS: 80048; 82565; 83036; 85025; 85610; 85730; 93306; 93458; C1874

== ENCOUNTER → 2019-03-22 | Outpatient (CLI) | payer OTHER ==
[2019-03-22 10:46] VITALS: BP 113/66; PULSE 68; RESP 18; TEMP 98.2; BMI 28.1
--- NOTE | 2019-03-22 11:28 | P.HPOB ---
History of Present Illness H&P Date: 03/22/19 Chief Complaint: The patient is here for her routine gynecologic exam and ma mmogram. This is a 58-year-old with an LMP of 2006. The patient is status post endometrial ablation in 2006 and has been amenorrheic since then. The patient is without gynecologic complaints and denies any postmenopausal bleeding. Review of Systems The patient has lost 10 pounds over the last year. She denies respiratory, cardiac, or G.I. problems. She denies any blood per rectum. Past Medical History Past Medical History: Coronary Artery Disease (CAD), Diabetes Mellitus, Myocardial Infarction ([place]) Additional Past Medical History / Comment(s): Chronic leg and back problems. 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 History of Any Multi-Drug Resistant Organisms: None Reported Past Surgical History: Cholecystectomy, Tubal Ligation Additional Past Surgical History / Comment(s): Endometrial ablation 2006. Abdominal wall hernia. Cardiac stent placement 2018. Colonoscopy 2013. Past Anesthesia/Blood Transfusion Reactions: No Reported Reaction Past Psychological History: Anxiety, Depression Smoking Status: Former smoker Past Alcohol Use History: None Reported Additional Past Alcohol Use History / Comment(s): Quit smoking January 2019. Past Drug Use History: Marijuana Additional Drug Use History / Comment(s): pt reports daily marijuana use. Additional History: She is and is not seeing anybody at this time. She is disabled. - Past Family History Mother Family Medical History: Cancer, Dementia, Hypertension Additional Family Medical History / Comment(s): ovarian cancer Father Family Medical History: Coronary Artery Disease (CAD), Diabetes Mellitus, Hypertension Sister(s) Family Medical History: Cancer Additional Family Medical History / Comment(s): Breast cancer. Medications and Allergies Home Medications Medication Instructions Recorded Confirmed Type ALPRAZolam [Xanax] 0.5 mg PO DAILY 03/06/19 03/22/19 History Dextroamphetamine/Amphetamine 30 mg PO BID 03/06/19 03/22/19 History [Adderall] Hydrochlorothiazide [Hydrodiuril] 25 mg PO DAILY 03/06/19 03/22/19 History Insuln Asp Prt/Insulin Aspart 25 units SQ BID 03/06/19 03/22/19 History [NovoLOG MIX 70-30 VIAL] Omeprazole 20 mg PO DAILY 03/06/19 03/22/19 History Pregabalin 75 mg PO TID 03/06/19 03/22/19 History Sertraline [Zoloft] 100 mg PO DAILY 03/06/19 03/22/19 History Aspirin 81 mg PO DAILY #30 chewable 03/08/19 03/22/19 Rx Atorvastatin [Lipitor] 80 mg PO HS #30 tab 03/08/19 03/22/19 Rx Clopidogrel [Plavix] 75 mg PO DAILY #30 tab 03/08/19 03/22/19 Rx Lisinopril [Zestril] 2.5 mg PO DAILY #30 tab 03/08/19 03/22/19 Rx Metoprolol Tartrate [Lopressor] 25 mg PO BID #60 tab 03/08/19 03/22/19 Rx Nitroglycerin Sl Tabs [Nitrostat] 0.4 mg SUBLINGUAL Q5M PRN #25 tab 03/08/19 03/22/19 Rx Allergies Allergy/AdvReac Type Severity Reaction Status Date / Time No Known Allergies Allergy Verified 03/22/19 10:47 Exam Vital Signs Temp Pulse Resp BP Pulse Ox 03/22/19 10:43 98.2 F 68 18 113/66 98 Intake and Output 03/21/19 03/22/19 03/22/19 22:59 06:59 14:59 Other: Weight 74.389 kg Height 5 feet 4 inches, weight 164 pounds, BMI 28.2. This is a well-developed well-nourished white female who is alert and oriented times 3 in no acute distress. HEENT: Within normal limits. NECK: Supple without mass or thyromegaly. CHEST AND LUNGS: Clear to auscultation. HEART: Regular rate and rhythm. BREASTS: Are without mass or discharge. AXILLARY EXAM: Negative for adenopathy. BACK: Negative for CVA tenderness. ABDOMEN: Soft, nontender, without palpable masses. PELVIC EXAM: Normal external genitalia with mild atrophy. Cervix and vagina appear normal with mild atrophy. There is no unusual discharge. There is no evidence of prolapse. The uterus is midposition, nongravid size and nontender. There are no palpable adnexal masses or tenderness. RECTAL EXAM: Rectovaginal exam is negative for mass or tenderness and is positive for occult blood. EXTREMITIES: Nontender. IMPRESSION: 1. 58-year-old menopausal female with normal gynecologic exam. 2. Hemoccult positive stool on rectal exam. PLAN: 1. Pap smear was performed. 2. Self breast awareness was discussed with the patient. 3. Screening mammogram will be done today. 4. The patient states she is unsure who did her colonoscopy in 2013. I have recommended repeating the colonoscopy in the very near future because of the heme-positive stool on exam today. She states she will contact Dr. Mesfin burrows's office to see who did her last colonoscopy and will have them help her arrange for another colonoscopy. I have stressed the importance of having this done because of this incidental finding. 5. Osteoporosis prevention was discussed. I have stressed the importance of adequate calcium, vitamin D and regular exercise. Recommended amounts of calcium and vitamin D were also discussed. 6. She was advised to return in one year for her annual well woman exam.
--- NOTE | 2019-03-23 11:22 | MM ---
Reason for exam: screening (asymptomatic). Last mammogram was performed 2 years and 5 months ago. History: Patient is postmenopausal and history of other cancer. Family history of premenopausal breast cancer in grandmother at age 30 and premenopausal breast cancer in sister at age 40. Cancelled Right Mammotome of the right breast, August 22, 2005. Physical Findings: A clinical breast exam by your physician is recommended on an annual basis and results should be correlated with mammographic findings. MG Screening Mammo w CAD Bilateral CC and MLO view(s) were taken. Prior study comparison: October 08, 2016, bilateral MG screening mammo w CAD. March 23, 2014, bilateral MG screening mammo w CAD. The breast tissue is almost entirely fat. No significant changes when compared with prior studies. ASSESSMENT: Benign, BI-RAD 2 RECOMMENDATION: Routine screening mammogram of both breasts in 1 year.
== END | disposition home or self-care (01) ==
LOC: WWCWWP 10:33
PROVIDERS: ATTEND Obstetrics & Gynecology
DX: Z12.31 Encounter for screening mammogram for malignant neoplasm of breast (principal)
CPT/HCPCS: 77067

== ENCOUNTER → 2020-06-18 | Outpatient (CLI) | payer OTHER ==
--- NOTE | 2020-06-19 08:51 | CT ---
EXAMINATION TYPE: CT soft tissue neck wo con DATE OF EXAM: 06/18/2020 COMPARISON: None HISTORY: Left sided neck mass x 1 week, marked by BB. CT DLP: 533.7 mGycm CONTRAST: Unenhanced CT of the neck was performed from the skull base through the lung apices. The lack of con trast limits evaluation. AIRWAY: The supraglottic, glottic, and subglottic portions of the airway appear patent and free of mass. SALIVARY GLANDS: There is a solid mass directly adjacent to or arising from the lower pole of the pa rotid gland measuring 2.0 x 1.3 cm. This could reflect a lymph node however massive parotid etiology is difficult to exclude. Tissue diagnosis is recommended. No additional parotid lesions are identifie d. The submandibular gland is free of mass or inflammatory process. THYROID GLAND: No nodules or masses seen. LYMPH NODES: No adenopathy seen greater than 1cm. LUNG APICES: No nodule or mass is seen. OTHER: Vascular structures are patent. Mild scattered degenerative disc space narrowing and spondylo sis. No abscess seen. IMPRESSION: 1. Nonspecific gas solid mass at the site of clinical concern arising from or adjacent to the lower p ole of the left parotid gland. Tissue diagnosis is recommended.
== END | disposition home or self-care (01) ==
LOC: RADCTMAIN 15:33
PROVIDERS: ATTEND Family Medicine
DX: R22.9 Localized swelling, mass and lump, unspecified (principal)
CPT/HCPCS: 70490

== ENCOUNTER 2020-07-17 09:04 | Day surgery (SDC) | payer OTHER ==
[2020-07-17 09:28] VITALS: RESP 16; TEMP 98.1
[2020-07-17 10:26] VITALS: BP 116/74; PULSE 75
--- NOTE | 2020-07-17 11:14 | US ---
ULTRASOUND GUIDED FNA AND CORE BIOPSY LEFT PAROTID MASS: CLINICAL HISTORY: Left parotid FINDINGS: The procedure was explained to the patient. The risks, complications, benefits and alternatives were discussed and any questions were answered. Informed consent was obtained. Patient was placed supin e on the ultrasound table and prepped and draped in the usual sterile fashion. Utilizing a 25 gauge needle, 3 18-gauge core samples and one FNA samples were obtained of the requested left parotid mass. Patient was stable throughout the procedure. Pathology is pending. All elements of maximal barrier technique were utilized. IMPRESSION: 1. Successful ultrasound guided FNA thyroid and core biopsy left parotid mass.
--- NOTE | 2020-07-18 12:37 | US ---
Please link this exam to ultrasound FNA first lesion same date
== END 2020-07-17 10:30 | disposition home or self-care (01) ==
LOC: RADPROMAIN 09:04
PROVIDERS: ATTEND Family Medicine
DX: D11.0 Benign neoplasm of parotid gland (principal); D49.0 Neoplasm of unspecified behavior of digestive system
CPT/HCPCS: 10005; 42400; 76942; 87070; 87075; 87205; 88305

== ENCOUNTER → 2020-09-17 | Outpatient (CLI) | payer OTHER ==
[2020-09-17 11:21] LABS: African American GFR (CKD) >90 (>60 ml/min/1.73 sqM); Blood Urea Nitrogen 18 mg/dL (7-17); Non-African American GFR(CKD) 80 (>60 ml/min/1.73 sqM)
--- NOTE | 2020-09-17 12:28 | CT ---
EXAMINATION TYPE: CT soft tissue neck wo/w con DATE OF EXAM: 09/17/2020 COMPARISON: June 18, 2020 HISTORY: Left lateral neck mass (BB placed) CT DLP: 1473 mGycm CONTRAST: CT scan of the neck is performed without and with IV Contrast, patient injected with 100ml mL of Isov ue 300. Contrast enhanced CT of the neck was performed from the skull base through the lung apices. Pre and p ost contrast enhanced images are obtained. BB marker was placed at the site of clinical concern withi n the left neck. AIRWAY: The supraglottic, glottic, and subglottic portions of the airway appear patent and free of mass. SALIVARY GLANDS: Again noted is a solid mass arising directly adjacent to or from within the parotid gland measuring approximately 1.9 x 1.3 cm versus 2.0 x 1.3 cm previously. While this could reflect a lymph node parotid mass of uncertain etiology is difficult to exclude. The right parotid gland is un remarkable without free of mass lesion or inflammatory change. Submandibular glands are within normal limits. THYROID GLAND: No nodules or masses seen. LYMPH NODES: No adenopathy seen greater than 1cm. LUNG APICES: No nodule or mass is seen. OTHER: Vascular structures are patent. No significant degenerative change of the cervical spine. N o abscess seen. IMPRESSION: 1. Essentially stable mass at the site of clinical concern corresponding to the lower pole of the par otid gland. See above.
== END | disposition home or self-care (01) ==
LOC: RADCTMAIN 10:33
PROVIDERS: ATTEND Otolaryngology
DX: R22.1 Localized swelling, mass and lump, neck (principal)
CPT/HCPCS: 82565; 84520; 70492; 36415; Q9967

== ENCOUNTER → 2021-05-15 | Outpatient (CLI) | payer OTHER ==
--- NOTE | 2021-05-16 14:06 | MM ---
Reason for exam: screening (asymptomatic). Last mammogram was performed 2 years and 2 months ago. History: Patient is postmenopausal and history of other cancer. Family history of premenopausal breast cancer in grandmother at age 30 and premenopausal breast cancer in sister at age 40. Cancelled Right Mammotome of the right breast, August 22, 2005. Physical Findings: A clinical breast exam by your physician is recommended on an annual basis and results should be correlated with mammographic findings. MG Screening Mammo w CAD Bilateral CC and MLO view(s) were taken. XCCL view(s) were taken of the right breast. Prior study comparison: March 22, 2019, bilateral MG screening mammo w CAD. October 08, 2016, bilateral MG screening mammo w CAD. There are scattered fibroglandular densities. There is no discrete abnormality. ASSESSMENT: Negative, BI-RAD 1 RECOMMENDATION: Routine screening mammogram of both breasts in 1 year.
== END | disposition home or self-care (01) ==
LOC: RADMAMWWP 16:01
PROVIDERS: ATTEND Family Medicine
DX: Z12.31 Encounter for screening mammogram for malignant neoplasm of breast (principal); Z78.0 Asymptomatic menopausal state; Z80.3 Family history of malignant neoplasm of breast
CPT/HCPCS: 77067